=== PATIENT | female | born 1980 | race Hispanic/Latino ===

== ENCOUNTER 2017-08-20 21:56 | Emergency (ER) | payer OTHER, MEDICARE ==
[~2017-08-20] VITALS: Ht 157.5 cm; Wt 63.5 kg
[~2017-08-20 21:56] MED LIST: AUGMENTIN 875 M1 TAB PO; MEDROL DOSEPAK1 PAC PO; PERCOCET 325 MG1 TA2 PO; VALIUM5 M1 PO
[2017-08-20 22:33] LABS: ABSOLUTE BASOPHIL COUNT 0 /CUMM (0.0-0.2); ABSOLUTE EOSINOPHIL COUNT 0.1 /CUMM (0.0-0.7); ABSOLUTE GRANULOCYTE CT 9.8 /CUMM (1.4-6.5); ABSOLUTE MONOCYTE COUNT 0.7 /CUMM (0.10-0.60); BASOPHIL % 0.2 % (0.0-2.0); EOSINOPHIL % 0.4 % (0-5); GRANULOCYTE % 78.5 % (42.2-75.2); HEMATOCRIT 44.2 % (37-47); MEAN CORPUSCULAR HGB CONC 33.8 G/DL (33.0-37.0); MEAN CORPUSCULAR VOLUME 88.7 FL (81.0-99.0); MEAN PLATELET VOLUME 6.8 FL (7.4-10.4); PLATELET COUNT 318 /CUMM (130-400); RED BLOOD CELL CT 4.99 /CUMM (4.20-5.40); WHITE BLOOD CELL COUNT 12.5 /CUMM (4.8-10.8)
--- NOTE | 2017-08-20 23:39 | ED GI/GU/ABDOMINAL COMPLAINT ---
History of Present Illness General Chief Complaint: Abdominal Pain/Flank Pain Stated Complaint: SEVERE RIGHT SIDED ABD PAIN Vital Signs & Intake/Output Vital Signs & Intake/Output Vital Signs Date Time Temp Pulse Resp B/P B/P Pulse O2 O2 Flow FiO2 Mean Ox Delivery Rate 08/21 0429 97.9 98 18 90/52 99 Room Air 08/21 0129 98.0 99 17 136/70 98 Room Air 08/20 2200 97.6 117 18 132/74 97 Room Air ED Intake and Output 08/21 0000 08/20 1200 Intake Total 0 Output Total Balance 0 Intake, Oral 0 Patient 140 lb Weight Weight Reported by Patient Measurement Method Allergies Coded Allergies: NO KNOWN ALLERGIES (05/11/15) Triage Note: PT TO ED C/O RT SIDE MID ABD CONSTANT AND WORSENING PAIN SINCE THIS MORNING. LAST MENSES JUST FINISHED.HAS URINARY FREQUENCY. FEELS BLOATED. LAST BM WAS TODAY AND WAS NORMAL HPI: 37F no PMH with 8 hours of right inguinal pain, started gradually and has become 10/10, now tearful and unable to move due to pain. Denies any flank pain or urinary symptoms. Reports mild fever, no chills, nausea without vomiting. Never had similar symptoms before. LMP 1 week ago. No other complaints. (Lula ESCOBEDO,Leonela) General Source: patient Exam Limitations: no limitations Reconcile Medications AMOXICILLIN/POTASSIUM CLAV (Augmentin 875-125 Tablet) 875 MG/125 MG TAB 1 TAB PO BID . Diazepam (Valium) 5 MG TAB 1 TAB PO TID PRN SPASM Methylprednisolone. (Medrol) 1 PAC PAC 1 PAC PO DAILY INFLAMMATION USE DIRECTED OXYCODONE HCL/ACETAMINOPHEN (Percocet 5-325 MG Tablet) 325 MG/5 MG TAB 1 TAB PO Q4-6 PRN PRN PAIN Sulfamethoxazole/Trimethoprim (Bactrim Ds Tablet) 800 MG-160 MG TABLET 1 TAB PO BID INFECION Triage Nurses Notes Reviewed? yes ? N Is pt currently ? No (Radha ESCOBEDO,Sarkis Quinonez) Past History Travel History Traveled to [place] past 21 day No Medical History Any Pertinent Medical History? 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 No (Leonela Cotton MD) Review of Systems Review of Systems Constitutional: Reports: no symptoms. EENTM: Reports: no symptoms. Respiratory: Reports: no symptoms. Cardiovascular: Reports: no symptoms. GI: Reports: no symptoms. Genitourinary: Reports: no symptoms. Musculoskeletal: Reports: no symptoms. Skin: Reports: no symptoms. Neurological/Psychological: Reports: no symptoms. Hematologic/Endocrine: Reports: no symptoms. Immunologic/Allergic: Reports: no symptoms. All Other Systems: Reviewed and Negative (Leonela Cotton MD) Physical Exam Physical Exam General Appearance: well developed/nourished, moderate distress Head: atraumatic, normal appearance Eyes: Bilateral: normal appearance. Ears, Nose, Throat, Mouth: moist mucous membrane Neck: normal inspection, full range of motion Respiratory: normal breath sounds, no respiratory distress Cardiovascular: regular rate/rhythm Gastrointestinal: soft, tender RLQ without rebound or guarding Back: normal inspection, normal range of motion Extremities: normal range of motion Neurologic/Psych: awake, alert, oriented x 3, normal mood/affect Skin: intact, normal color, warm/dry Core Measures ACS in differential dx? No Sepsis Present: No Sepsis Focused Exam Completed? No (Leonela Cotton MD) Physical Exam Pelvic: normal mucosa, no discharge. right adnexal tenderness to palpation (Radha ESCOBEDO,Sarkis Quinonez) Progress Differential Diagnosis: appendicitis, biliary colic, bowel obstruction, cholecystitis, ectopic , hernia, kidney stone, ovarian cyst, ovarian torsion, pancreatitis, UTI/pyelo Plan of Care: Orders Procedure Date/time Status TRICHOMONAS 08/22 223 Complete POTASSIUM HYDROXIDE (MICHAEL) 08/22 223 Complete GENITAL CULTURE 08/22 223 Active CHLAMYDIA-GC DNA PROBE 08/22 223 Active URINALYSIS 08/20 2156 Complete TROPONIN LEVEL 08/20 2156 Complete LIPASE 08/20 2156 Complete HEPATIC FUNCTION PANEL 08/20 2156 Complete HUMAN BETA HCG SCREEN 08/20 2156 Complete CBC WITHOUT DIFFERENTIAL 08/20 2156 Complete BASIC METABOLIC PANEL 08/20 2156 Complete AMYLASE 08/20 2156 Complete EKG 08/20 2156 Active Current Medications Sig/Shara Start time Last Medication Dose Stop Time Status Admin Trimethoprim/ 1 TAB ONCE ONE 08/21 544 UNVr Sulfamethoxazole 08/21 545 (Bactrim DS) Laboratory Tests 08/20/170: Urinalysis LIGHT H, Urine Color YEL, Urine Clarity HAZY H, Urine pH 6.0, Ur Specific [place] 1.020, Urine Protein NEG, Urine Ketones TRACE H, Urine Nitrite NEG, Urine Bilirubin NEG, Urine Urobilinogen 1.0, Ur Leukocyte Esterase NEG, Ur Microscopic SEDIMENT EXAMINED, Urine RBC 25-50 H, Urine WBC 1-3 H, Ur Epithelial Cells MANY H, Urine Bacteria MOD H, Urine Mucus MOD H, Urine Hemoglobin LARGE H, Urine Glucose NEG 08/20/17 2216: Anion Gap 11, Estimated GFR > 60, BUN/Creatinine Ratio 8.9, Glucose 91, Calcium 9.3, Total Bilirubin 0.5, Direct Bilirubin 0.2, AST 28, ALT 17, Alkaline Phosphatase 88, Troponin I < 0.01, Total Protein 7.7, Albumin 4.3, Amylase 63, Lipase 99, Total Beta HCG NEGATIVE, CBC w Diff NO MAN DIFF REQ, RBC 4.99, MCV 88.7, MCH 30.0, MCHC 33.8, RDW 13.0, MPV 6.8 L, Gran % 78.5 H, Lymphocytes % 15.6 L, Monocytes % 5.3, Eosinophils % 0.4, Basophils % 0.2, Absolute Granulocytes 9.8 H, Absolute Lymphocytes 2.0, Absolute Monocytes 0.7 H, Absolute Eosinophils 0.1, Absolute Basophils 0 Microbiology 08/21 226 GENITAL: GC DNA Probe - RECD 08/21 226 GENITAL: Chlamydia DNA Probe (ABHIJIT) - RECD 08/21 226 GENITAL: MICHAEL Preparation - COMP 08/21 226 GENITAL: Trichomonas Preparation - COMP 08/21 226 GENITAL: Genital Culture - RECD Initial ED EKG: none (Lula ESCOBEDO,Leonela) Diagnostic Imaging: Viewed by Me: CT Scan. Discussed w/RAD: CT Scan. Radiology Impression: PATIENT: ANNA TRUJILLO PRESENT AGE: 37 PATIENT ACCOUNT NO: [id number] : 79 LOCATION: [facility] ORDERING PHYSICIAN: Leonela Cotton MD SERVICE DATE: 08/20/171675 EXAM TYPE : CAT - CT ABD & PELVIS W/O IV CONTRAS EXAMINATION: CT ABDOMEN AND PELVIS WITHOUT CONTRAST CLINICAL INFORMATION: Right inguinal severe pain with microscopic hematuria COMPARISON: 07/16/2012 TECHNIQUE: Multidetector volumetric imaging was performed from the superior aspect of the liver through the pubic symphysis. Sagittal and coronal reformatted images were obtained on the technologist's workstation. DLP: 330.64 mGy-cm FINDINGS: LUNG BASES: The visualized lung bases are unremarkable. LIVER, GALLBLADDER, AND BILIARY TREE: The liver is normal in size, shape, and attenuation. No focal hepatic lesion or biliary ductal dilatation is present. Patient is status post cholecystectomy. A few calcifications adjacent to the posterior margin of the right hepatic lobe may reflect dropped gallstones. PANCREAS: Unremarkable. SPLEEN: Unremarkable. ADRENAL GLANDS: Unremarkable. KIDNEYS AND URETERS: The kidneys are normal in size, shape, and attenuation. No hydronephrosis, hydroureter, or calculi seen. No perinephric stranding. BLADDER: Unremarkable. GASTROINTESTINAL TRACT: The small and large bowel are unremarkable. The appendix is unremarkable. No free fluid or free air is seen. ABDOMINAL WALL: No significant hernia is appreciated. LYMPH NODES: No lymphadenopathy is seen, though assessment is somewhat limited in the absence of intravenous contrast. VASCULAR: Unremarkable. PELVIC VISCERA: Unremarkable. OSSEOUS STRUCTURES: Unremarkable. IMPRESSION: No acute findings identified in the abdomen/pelvis. DICTATED BY: Xavier Rosenthal MD DATE/TIME DICTATED:08/21/17142 DISTRICT REPRESENTATIVE:LIZA DATE/TIME TRANSCRIBED:142 CONFIDENTIAL, DO NOT COPY WITHOUT APPROPRIATE AUTHORIZATION. < Electronically signed in Other Vendor System> SIGNED BY: Xavier Rosenthal MD 08/21/17 0152, PATIENT: ANNA TRUJILLO PRESENT AGE : 37 PATIENT ACCOUNT NO: [id number] : 79 LOCATION: [facility] ORDERING PHYSICIAN: Sarkis Garcia MD SERVICE DATE: 08/21/17 EXAM TYPE: US - US-TRANSVAGINAL EXAMINATION: US TRANSVAGINAL CLINICAL INFORMATION: Right lower quadrant pain, question ovarian torsion COMPARISON: CT 08/20/2017 TECHNIQUE: Sonographic evaluation of the pelvis was performed transabdominally and transvaginally. FINDINGS: The uterus measures 7.8 cm in length and 3.9 x 5.1 cm in AP and transverse dimensions. The endometrial stripe measures 1.1 cm thickness. The cervix measures 2.6 cm in length. The right ovary measures 3.0 x 1.6 x 2.1 cm and has a normal appearance. Doppler evaluation demonstrates normal -appearing arterial and venous waveforms in the right ovary. The left ovary measures 2.1 x 3.0 x 2.4 cm and contains a few small cysts suggestive of follicles. Doppler evaluation demonstrates normal-appearing arterial and venous waveforms in the left ovary. No free fluid is seen. IMPRESSION: No acute findings identified. No findings to suggest ovarian torsion. DICTATED BY: Xavier Rosenthal MD DATE/TIME DICTATED:08/21/17508 DISTRICT REPRESENTATIVE:LIZA DATE/ TIME TRANSCRIBED:08/21/17508 CONFIDENTIAL, DO NOT COPY WITHOUT APPROPRIATE AUTHORIZATION. <Electronically signed in Other Vendor System> SIGNED BY: Xavier Rosenthal MD 08/21/17 0518 (Radha ESCOBEDO,Sarkis Quinonez) Departure Departure Condition: Stable Referrals: Patient Has No Primary Care Dr (PCP/Family) Departure Forms: Customer Survey General Discharge Information (Lula ESCOBEDO,Leonela) Departure Disposition: HOME OR SELF CARE Clinical Impression Primary Impression: Abdominal pain Prescriptions: Current Visit Scripts Sulfamethoxazole/Trimethoprim (Bactrim Ds Tablet) 1 TAB PO BID #14 TAB Comments 08/21/17, 1:42am... discussed with patient... pt with rlq tenderness, negative ct scan...pt merits u/s to assess for ovarian torsion. 08/21/17, 5:38AM... Pt is sleeping soundly this morning... u/s benign, no torsion seen... discussed with patient who notes urinary frequency. she finished her menses yesterday which may explain the hematuria... will treat for uti given her symptoms, abnormal u/a, and physical exam. close follow up advised. (Radha ESCOBEDO,Sarkis Quinonez)
--- NOTE | 2017-08-21 01:52 | CT SCAN REPORT ---
EXAMINATION: CT ABDOMEN AND PELVIS WITHOUT CONTRAST CLINICAL INFORMATION: Right inguinal severe pain with microscopic hematuria COMPARISON: 07/16/2012 TECHNIQUE: Multidetector volumetric imaging was performed from the superior aspect of the liver through the pubic symphysis. Sagittal and coronal reformatted images were obtained on the technologist's workstation. DLP: 330.64 mGy-cm FINDINGS: LUNG BASES: The visualized lung bases are unremarkable. LIVER, GALLBLADDER, AND BILIARY TREE: The liver is normal in size, shape, and attenuation. No focal hepatic lesion or biliary ductal dilatation is present. Patient is status post cholecystectomy. A few calcifications adjacent to the posterior margin of the right hepatic lobe may reflect dropped gallstones. PANCREAS: Unremarkable. SPLEEN: Unremarkable. ADRENAL GLANDS: Unremarkable. KIDNEYS AND URETERS: The kidneys are normal in size, shape, and attenuation. No hydronephrosis, hydroureter, or calculi seen. No perinephric stranding. BLADDER: Unremarkable. GASTROINTESTINAL TRACT: The small and large bowel are unremarkable. The appendix is unremarkable. No free fluid or free air is seen. ABDOMINAL WALL: No significant hernia is appreciated. LYMPH NODES: No lymphadenopathy is seen, though assessment is somewhat limited in the absence of intravenous contrast. VASCULAR: Unremarkable. PELVIC VISCERA: Unremarkable. OSSEOUS STRUCTURES: Unremarkable. IMPRESSION: No acute findings identified in the abdomen/pelvis.
--- NOTE | 2017-08-21 05:18 | ULTRASOUND REPORT ---
EXAMINATION: US TRANSVAGINAL CLINICAL INFORMATION: Right lower quadrant pain, question ovarian torsion COMPARISON: CT 08/20/2017 TECHNIQUE: Sonographic evaluation of the pelvis was performed transabdominally and transvaginally. FINDINGS: The uterus measures 7.8 cm in length and 3.9 x 5.1 cm in AP and transverse dimensions. The endometrial stripe measures 1.1 cm thickness. The cervix measures 2.6 cm in length. The right ovary measures 3.0 x 1.6 x 2.1 cm and has a normal appearance. Doppler evaluation demonstrates normal-appearing arterial and venous waveforms in the right ovary. The left ovary measures 2.1 x 3.0 x 2.4 cm and contains a few small cysts suggestive of follicles. Doppler evaluation demonstrates normal-appearing arterial and venous waveforms in the left ovary. No free fluid is seen. IMPRESSION: No acute findings identified. No findings to suggest ovarian torsion.
[2017-08-21] MEDS ORDERED: BACTRIM DS TAB1 EACH PO (05:37)
[2017-08-21] MEDS ORDERED: ZOFRAN ODT4 M1 SL (05:40)
[2017-08-21 05:41] VITALS: BP 116/72
== END 2017-08-21 06:22 ==
LOC: ERH 21:56
PROVIDERS: Pediatrics
DX: R10.31 Right lower quadrant pain (principal)
CPT/HCPCS: 87070; 74176; 81001; 87491; 87591; 93005; 93010; 96361; 96374; 96375; 96376; J0131; J1885; J2405

== ENCOUNTER 2017-10-13 22:12 | Emergency (ER) | payer OTHER, MEDICARE ==
[~2017-10-13] VITALS: Ht 154.9 cm; Wt 63.5 kg
[~2017-10-13 22:12] MED LIST changes: +BACTRIM DS TAB1 EACH PO; +ZOFRAN ODT4 M1 SL
[2017-10-13 23:50] LABS: ABSOLUTE BASOPHIL COUNT 0 /CUMM (0.0-0.2); ABSOLUTE EOSINOPHIL COUNT 0.2 /CUMM (0.0-0.7); ABSOLUTE GRANULOCYTE CT 7.9 /CUMM (1.4-6.5); ABSOLUTE LYMPH COUNT 2.3 /CUMM (1.2-3.4); ABSOLUTE MONOCYTE COUNT 0.7 /CUMM (0.10-0.60); BASOPHIL % 0.4 % (0.0-2.0); EOSINOPHIL % 2.1 % (0-5); GRANULOCYTE % 70.6 % (42.2-75.2); HEMATOCRIT 42.1 % (37-47); MEAN CORPUSCULAR HGB 29.7 PG (27.0-31.0); MEAN CORPUSCULAR HGB CONC 33.3 G/DL (33.0-37.0); MEAN CORPUSCULAR VOLUME 89.2 FL (81.0-99.0); MEAN PLATELET VOLUME 6.5 FL (7.4-10.4); PLATELET COUNT 312 /CUMM (130-400); RBC DISTRIBUTION WIDTH 13.3 % (11.5-14.5); RED BLOOD CELL CT 4.72 /CUMM (4.20-5.40); WHITE BLOOD CELL COUNT 11.1 /CUMM (4.8-10.8)
--- NOTE | 2017-10-13 23:59 | ED GI/GU/ABDOMINAL COMPLAINT ---
History of Present Illness General Chief Complaint: Female Urogenital Problems Stated Complaint: VAGINAL BLEEDING X 5WEEKS Source: patient, old records Exam Limitations: no limitations Vital Signs & Intake/Output Vital Signs & Intake/Output Vital Signs Date Time Temp Pulse Resp B/P B/P Pulse O2 O2 Flow FiO2 Mean Ox Delivery Rate 10/14 0058 96.4 95 18 122/73 98 Room Air 10/13 2340 Room Air 10/13 2216 96.0 114 20 90/48 98 Room Air ED Intake and Output 10/14 0000 10/13 1200 Intake Total 1000 Output Total Balance 1000 Intake, IV 1000 Intake, Oral 0 Patient 140 lb Weight Weight Reported by Patient Measurement Method Allergies Coded Allergies: NO KNOWN ALLERGIES (05/11/15) Reconcile Medications AMOXICILLIN/POTASSIUM CLAV (Augmentin 875-125 Tablet) 875 MG/125 MG TAB 1 TAB PO BID . Diazepam (Valium) 5 MG TAB 1 TAB PO TID PRN SPASM Methylprednisolone. (Medrol) 1 PAC PAC 1 PAC PO DAILY INFLAMMATION USE DIRECTED Ondansetron (Zofran Odt) 4 MG TAB.RAPDIS 1 TAB SL TID PRN nausea/vomiting OXYCODONE HCL/ACETAMINOPHEN (Percocet 5-325 MG Tablet) 325 MG/5 MG TAB 1 TAB PO Q4-6 PRN PRN PAIN Sulfamethoxazole/Trimethoprim (Bactrim Ds Tablet) 800 MG-160 MG TABLET 1 TAB PO BID INFECION Triage Note: PT HERE WITH C/O HEAVY VAGINAL BLEEDING. PT REPORTS THAT IT BEGAN 5 WEEKS AGO AND WAS SEEN AT [facility] AND WAS TOLD TO FLOOW UP WITH OBG. OT REPORTS SHE HAS AN APPT ON 10/18. PER PT WAS TOLD TO COME TO ED IF IT GOT HEAVIER. PT REPORTS THAT SHE IS PASSING LARGE CLOTS AND IS GOING THRU 2 PACKS OF PADS DAILY. Triage Nurses Notes Reviewed? yes LMP (ages 10-50): 5 weeks ? n Is pt currently ? No Onset: 5 weeks Duration: week(s):, constant, continues in ED Timing: recent history Quality/Severity: cramping, severe Location: suprapubic Radiation: no radiation Activities at Onset: rest Prior Abdominal Problems: similar symptoms Past Sexual History: Unobtainable at this time No Modifying Factors: none Associated Symptoms: abdominal pain HPI: 5 weeks prior to admission patient complains of continued heavy vaginal bleeding since her last period. She was evaluated at [facility] and prescribed tramadol. 1 day prior to admission she complains of increased bleeding with clots and cramping. She denies fever chills nausea vomiting diarrhea chest pain cough shortness of breath headache dysuria rash. Past History Travel History Traveled to [place] past 21 day No Medical History Any Pertinent Medical History? 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 No Review of Systems Review of Systems Constitutional: Reports: no symptoms. EENTM: Reports: no symptoms. Respiratory: Reports: no symptoms. Cardiovascular: Reports: no symptoms. GI: Reports: no symptoms. Genitourinary: Reports: see HPI, pain. Musculoskeletal: Reports: no symptoms. Skin: Reports: no symptoms. Neurological/Psychological: Reports: no symptoms. Hematologic/Endocrine: Reports: no symptoms. Immunologic/Allergic: Reports: no symptoms. All Other Systems: Reviewed and Negative Physical Exam Physical Exam General Appearance: well developed/nourished, alert, awake, anxious, moderate distress Head: atraumatic, normal appearance Eyes: Bilateral: normal appearance, PERRL, EOMI, normal inspection. Ears, Nose, Throat, Mouth: hearing grossly normal, moist mucous membrane Neck: normal inspection, supple, full range of motion, normal alignment Respiratory: normal breath sounds, chest non-tender, no respiratory distress, quiet respiration, lungs clear Cardiovascular: regular rate/rhythm, normal peripheral pulses, norml femoral pulses equa Peripheral Pulses: 4+ carotid (R), 4+ carotid (L) Gastrointestinal: normal bowel sounds, soft, non-tender, no organomegaly Pelvic: active bleeding (mild), blood Back: normal inspection, normal range of motion Extremities: normal range of motion, no ligament instability Neurologic/Psych: no motor/sensory deficits, awake, alert, oriented x 3, normal gait, normal mood/affect, financial 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 No Sepsis Present: No Sepsis Focused Exam Completed? No Progress Differential Diagnosis: ectopic , intrauterine , dysfunctional uterine bleeding Plan of Care: Orders Procedure Date/time Status HUMAN BETA HCG SCREEN 10/14 2323 Complete COMPREHENSIVE METABOLIC PANEL 10/14 2323 Complete CBC WITHOUT DIFFERENTIAL 10/14 2323 Complete Laboratory Tests 10/13/17 2335: Anion Gap 9, Estimated GFR > 60, BUN/Creatinine Ratio 17.5, Glucose 91, Calcium 9.0, Total Bilirubin 0.4, AST 28, ALT 34, Alkaline Phosphatase 82, Total Protein 7.3, Albumin 4.0, Globulin 3.3, Albumin/Globulin Ratio 1.2, Total Beta HCG NEGATIVE, CBC w Diff NO MAN DIFF REQ, RBC 4.72, MCV 89.2, MCH 29.7, MCHC 33.3, RDW 13.3, MPV 6.5 L, Gran % 70.6, Lymphocytes % 20.7, Monocytes % 6.2, Eosinophils % 2.1, Basophils % 0.4, Absolute Granulocytes 7.9 H, Absolute Lymphocytes 2.3, Absolute Monocytes 0.7 H, Absolute Eosinophils 0.2, Absolute Basophils 0 Initial ED EKG: none Departure Departure Time of Disposition: 108 Disposition: HOME OR SELF CARE Condition: Stable Clinical Impression Primary Impression: Dysfunctional uterine bleeding Additional Instructions: Follow up with your staffing associate as scheduled Departure Forms: Customer Survey General Discharge Information Prescriptions: Current Visit Scripts Medroxyprogesterone Acetate (Provera) 1 TAB PO DAILY #10 TAB Ibuprofen 1 TAB PO Q6P PRN pain #50 TAB with food
[2017-10-14 00:58] VITALS: BP 122/73
[2017-10-14] MEDS ORDERED: PROVERA10 MG PO (01:10)
[2017-10-14] MEDS ORDERED: IBUPROFEN600 M1 PO (01:11)
== END 2017-10-14 01:17 ==
LOC: ERH 22:12
PROVIDERS: Emergency Medicine
DX: N93.8 Other specified abnormal uterine and vaginal bleeding (principal)
CPT/HCPCS: 96374; J1885